=== PATIENT | female | born 1960 | race Caucasian/White ===

== ENCOUNTER 2020-01-05 15:45 | Emergency (ER) | payer OTHER ==
[2020-01-05] MEDS ORDERED: LORAZEPAM 1 MG TABLET ONE (17:05)
[2020-01-05 17:14] LABS: Absolute Lymphocytes (CBC) 3.5 K/uL (0.7-4.9); Basophils % 0.8 % (0-1.3); Hematocrit 40.5 % (36.0-45.0); Lymphocytes % 36.2 % (15.3-44.8); MPV 8.1 fL (7.6-11.3); Protime INR 1.08; RBC Red Blood Cell Count 4.51 M/uL (3.86-4.86)
[2020-01-05 17:30] LABS: ALT/SGPT 34 U/L (12-78); AST/SGOT 24 U/L (15-37); Albumin 4.2 g/dL (3.4-5.0); Alkaline Phosphatase 94 U/L (45-117); BUN Blood Urea Nitrogen 15 mg/dL (7-18); Bicarbonate 25 mmol/L (21-32); Bilirubin Direct < 0.1 mg/dL (0-0.2); Bilirubin Total 0.3 mg/dL (0.2-1.0); Glucose Level 96 mg/dL (74-106); Magnesium 2.1 mg/dL (1.8-2.4); NT PRO-BNP 31 pg/mL (<125); Potassium 3.3 mmol/L (3.5-5.1); Protein, Total 7.8 g/dL (6.4-8.2); Sodium Level 140 mmol/L (136-145); Troponin (Emerg Dept Use Only) < 0.02 ng/mL (0.0-0.045)
--- NOTE | 2020-01-05 17:53 | RAD REPORT ---
EXAM DESCRIPTION: RAD - Chest Single View - 01/05/2020 5:19 pm CLINICAL HISTORY: CHEST PAIN COMPARISON: None TECHNIQUE: AP portable chest image was obtained 01/05/2020 5:19 pm . FINDINGS: Lungs are clear. Heart and vasculature are normal. No measurable pleural effusion and no p neumothorax. No acute bony abnormality seen. No acute aortic findings suspected. IMPRESSION: No acute cardiopulmonary process.
--- NOTE | 2020-01-05 18:26 | ER ---
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 Heavy, intermittent, ca1 radiating to the L arm. Reports lightheadedness and SOB with chest pain. States, "I also have anxiety". Denies injury. Denies cough. Denies HX of heart conditions. Coronavirus screen: Client denies travel out of the [place] in the last 14 days. shortness of breath, Client presents with at least one sign or symptom that may indicate coronavirus-19. Standard/surgical mask placed on the client. Provider contacted for isolation considerations. The client reports previous COVID testing was negative. Date of collection: November 2019. Ebola Screen: Patient negative for fever greater than or equal to 101.5 degrees Fahrenheit, and additional compatible Ebola Virus Disease symptoms Patient denies exposure to infectious person. Patient denies travel to an Ebola-affected area in the 21 days before illness onset. No symptoms or risks identified at this time. Initial Sepsis Screen: Does the patient meet any 2 criteria? No. Patient's initial sepsis screen is negative. Does the patient have a suspected source of infection? No. Patient's initial sepsis screen is negative. Risk Assessment: Do you want to hurt yourself or someone else? Patient reports no desire to harm self or others. Onset of symptoms was January 05, 2020. 15:52 Method Of Arrival: Ambulatory ca1 15:52 Acuity: ADOLFO 3 ca1 16:01 Acuity: ADOLFO 2 ll2 Historical: - Allergies: 15:56 PENICILLINS; ca1 15:56 Pyridium; ca1 - Home Meds: 15:56 Paxil 40 mg Oral tab 1 tab once daily [Active]; Paxil 10 mg Oral tab 1 tab once daily ca1 [Active]; - PMHx: 15:56 Depression; ca1 - PSHx: 15:56 Hysterectomy; Cholecystectomy; ca1 - Immunization history:: Adult Immunizations up to date, Flu vaccine is up to date. - Social history:: Smoking status: Patient denies any tobacco usage or history of. Screenin:06 Abuse screen: Denies threats or abuse. Nutritional screening: No deficits noted. ll2 Tuberculosis screening: No symptoms or risk factors identified. Fall Risk None identified. Assessment: 16:05 General: Appears in no apparent distress. Behavior is calm, cooperative, appropriate ll2 for age. Pain: Complains of pain in mid-sternal area Pain does not radiate. Pain currently is 6 out of 10 on a pain scale. Quality of pain is described as dull, pressure, Pain began 30 min ago. Neuro: Level of Consciousness is awake, alert, obeys commands, Oriented to person, place, time, situation. Cardiovascular: Capillary refill < 3 seconds Patient's skin is warm and dry. Respiratory: Airway is patent Respiratory effort is even, unlabored, Respiratory pattern is regular, symmetrical. Derm: Skin is intact, is healthy with good turgor, Skin is dry, Skin is pink, warm \\T\\ dry. Skin temperature is warm. Musculoskeletal: Circulation, motion, and sensation intact. Range of motion: intact in all extremities. 18:53 Reassessment: Pt reports unable to swallow pills, ERD notified, VO to change order to jl7 25 mEq Potassium Effervescent PO. Vital Signs: 15:52 BP 136 / 83; Pulse 87; Resp 16 S; Temp 97.2(TE); Pulse Ox 100% on R/A; Weight 79.83 kg ca1 (R); Height 5 ft. 5 in. (165.10 cm) (R); Pain 6/10; 16:05 BP 140 / 92; Pulse 87; Resp 16; Pulse Ox 100% on R/A; ll2 17:04 BP 115 / 77; Pulse 80; Resp 14; Pulse Ox 100% ; ll2 15:52 Body Mass Index 29.29 (79.83 kg, 165.10 cm) ca1 ED Course: 15:48 Patient arrived in ED. as 15:55 Triage completed. ca1 15:56 Arm band placed on right wrist. ca1 16:01 Maritza Johnston, BARBARA is Primary Nurse. ll2 16:12 EKG done, by ED staff, reviewed by Amrik Kramer MD. mh5 16:13 Patient has correct armband on for positive identification. Placed in gown. Bed in low mh5 position. Call light in reach. Side rails up X 1. Warm blanket given. quality assurance monitor final on. Pulse ox on. NIBP on. 16:16 Amrik Kramer MD is Attending Physician. kdr 17:06 Initial lab(s) drawn, by me, sent to lab. Inserted saline lock: 20 gauge in left ll2 antecubital area, using aseptic technique. Blood collected. Patient maintains SpO2 saturation greater than 95% on room air. 17:19 XRAY Chest (1 view) In Process Unspecified. EDMS 18:58 No provider procedures requiring assistance completed. IV discontinued, intact, jl7 bleeding controlled, No redness/swelling at site. Pressure dressing applied. Administered Medications: 17:07 Drug: Ativan 1 mg Route: PO; ll2 18:54 Not Given (Other Intervention Used): Potassium Chloride 20 mEq PO once jl7 18:54 Drug: Potassium Effervescent Tablet 25 mEq Route: PO; jl7 18:54 Follow up: Response: Medication administered at discharge. jl7 Outcome: 18:26 Discharge ordered by . kdr 18:58 Discharged to home ambulatory. jl7 18:58 Condition: stable 18:58 Discharge instructions given to patient, Instructed on discharge instructions, follow up and referral plans. medication usage, Demonstrated understanding of instructions, follow-up care, medications, Prescriptions given X 1. 18:59 Patient left the ED. jl7 Signatures: Dispatcher [employer] EDDC Amrik Kramer MD MD kdr Martinez, Amelia as Martinez, Maria [facility] Toni Traylor RN RN jl7 Teri Ferrera RN RN [facility] Maritza Johnston RN RN 2
--- NOTE | 2020-01-05 18:27 | EDPHYS ---
Physician Documentation [facility] Name: Monalisa Moore Age: 59 yrs Sex: Female : 1960 Arrival Date: 01/05/2020 Time: 15:48 Bed 17 Private MD: ED Physician Amrik Kramer HPI: 01/04 17:05 This 59 yrs old Female presents to ER via Ambulatory with complaints of kdr Anxiety, Chest Pressure, Shortness Of Breath. 17:05 The patient or guardian reports chest pain that is located primarily in the substernal kdr area. Onset: acutely, just prior to arrival. The pain does not radiate. Associated signs and symptoms: Pertinent positives: shortness of breath, Pertinent negatives: abdominal pain, cough, diaphoresis, dizziness, headache, lower extremity pain, lower extremity swelling, lightheadedness, nausea. The chest pain is described as dull, a pressure, Feels like she is vibrating inside her chest. Duration: The patient or guardian reports a single episode, that is still ongoing, but improving. Modifying factors: The symptoms are alleviated by nothing. the symptoms are aggravated by nothing. Severity of pain: At its worst the pain was mild in the emergency department the pain is unchanged. The patient has not experienced similar symptoms in the past. The patient has not recently seen a physician. The patient states that she has been under a lot of stress since becoming unemployeed. Historical: - Allergies: 15:56 PENICILLINS; ca1 15:56 Pyridium; ca1 - Home Meds: 15:56 Paxil 40 mg Oral tab 1 tab once daily [Active]; Paxil 10 mg Oral tab 1 tab once daily ca1 [Active]; - PMHx: 15:56 Depression; ca1 - PSHx: 15:56 Hysterectomy; Cholecystectomy; ca1 - Immunization history:: Adult Immunizations up to date, Flu vaccine is up to date. - Social history:: Smoking status: Patient denies any tobacco usage or history of. ROS: 17:05 Constitutional: Negative for fever, chills, and weight loss, Eyes: Negative for injury, kdr pain, redness, and discharge, ENT: Negative for injury, pain, and discharge, Neck: Negative for injury, pain, and swelling, Respiratory: Negative for shortness of breath, cough, wheezing, and pleuritic chest pain, Abdomen/GI: Negative for abdominal pain, nausea, vomiting, diarrhea, and constipation, Back: Negative for injury and pain, : Negative for injury, bleeding, discharge, and swelling, MS/Extremity: Negative for injury and deformity, Skin: Negative for injury, rash, and discoloration, Neuro: Negative for headache, weakness, numbness, tingling, and seizure activity. Psych: Negative for depression, anxiety, suicide ideation, homicidal ideation, and hallucinations, Allergy/Immunology: Negative for hives, rash, and allergies, Endocrine: Negative for neck swelling, polydipsia, polyuria, polyphagia, and marked weight changes, Hematologic/Lymphatic: Negative for swollen nodes, abnormal bleeding, and unusual bruising. 17:05 Cardiovascular: Positive for chest pain, of the mid-sternal area. 17:05 Respiratory: Positive for shortness of breath, at rest. initially at onset. Exam: 17:05 Constitutional: This is a well developed, well nourished patient who is awake, alert, kdr and in no acute distress. Head/Face: Normocephalic, atraumatic. Eyes: Pupils equal round and reactive to light, extra-ocular motions intact. Lids and lashes normal. Conjunctiva and sclera are non-icteric and not injected. Cornea within normal limits. Periorbital areas with no swelling, redness, or edema. Neck: Trachea midline, no thyromegaly or masses palpated, and no cervical lymphadenopathy. Supple, full range of motion without nuchal rigidity, or vertebral point tenderness. No Meningismus. Chest/axilla: Normal chest wall appearance and motion. Nontender with no deformity. No lesions are appreciated. Cardiovascular: Regular rate and rhythm with a normal S1 and S2. No gallops, murmurs, or rubs. Normal PMI, no JVD. No pulse deficits. Respiratory: Lungs have equal breath sounds bilaterally, clear to auscultation and percussion. No rales, rhonchi or wheezes noted. No increased work of breathing, no retractions or nasal flaring. Abdomen/GI: Soft, non-tender, with normal bowel sounds. No distension or tympany. No guarding or rebound. No evidence of tenderness throughout. Back: No spinal tenderness. No costovertebral tenderness. Full range of motion. Skin: Warm, dry with normal turgor. Normal color with no rashes, no lesions, and no evidence of cellulitis. MS/ Extremity: Pulses equal, no cyanosis. Neurovascular intact. Full, normal range of motion. Neuro: Awake and alert, GCS 15, oriented to person, place, time, and situation. Cranial nerves II-XII grossly intact. Motor strength 5/5 in all extremities. Sensory grossly intact. Cerebellar exam normal. Normal gait. Psych: Awake, alert, with orientation to person, place and time. Behavior, mood, and affect are within normal limits. 19:12 ECG was reviewed by the Attending Physician. kdr Vital Signs: 15:52 BP 136 / 83; Pulse 87; Resp 16 S; Temp 97.2(TE); Pulse Ox 100% on R/A; Weight 79.83 kg ca1 (R); Height 5 ft. 5 in. (165.10 cm) (R); Pain 6/10; 16:05 BP 140 / 92; Pulse 87; Resp 16; Pulse Ox 100% on R/A; ll2 17:04 BP 115 / 77; Pulse 80; Resp 14; Pulse Ox 100% ; ll2 15:52 Body Mass Index 29.29 (79.83 kg, 165.10 cm) ca1 MDM: 17:05 Data reviewed: vital signs, nurses notes, lab test result(s), EKG, radiologic studies. kdr Counseling: I had a detailed discussion with the patient and/or guardian regarding: the historical points, exam findings, and any diagnostic results supporting the discharge/admit diagnosis, lab results, radiology results, the need for outpatient follow up. 18:26 Patient medically screened. [facility] 01/04 16:51 Order name: Basic Metabolic Panel; Complete Time: 18:16 [facility] 01/04 16:51 Order name: CBC with Diff; Complete Time: 18:16 [facility] 01/04 16:51 Order name: LFT's; Complete Time: 18:16 [facility] 01/04 16:51 Order name: Magnesium; Complete Time: 18:16 [facility] 01/04 16:51 Order name: NT PRO-BNP; Complete Time: 18:16 [facility] 01/04 16:51 Order name: PT-INR; Complete Time: 18:16 [facility] 01/04 16:51 Order name: Troponin (emerg Dept Use Only); Complete Time: 18:16 [facility] 01/04 16:40 Order name: Cardiac monitoring; Complete Time: 16:40 2 01/04 16:40 Order name: EKG - Nurse/Tech; Complete Time: 16:40 2 01/04 16:40 Order name: IV Saline Lock; Complete Time: 17:01 2 01/04 16:40 Order name: Labs collected and sent; Complete Time: 17:01 2 01/04 16:40 Order name: O2 Per Protocol; Complete Time: 16:40 2 01/04 16:40 Order name: O2 Sat Monitoring; Complete Time: 16:40 2 01/04 16:51 Order name: XRAY Chest (1 view); Complete Time: 18:16 7 01/04 16:51 Order name: EKG; Complete Time: 16:51 [facility] EC:12 Rate is 83 beats/min. Rhythm is regular, Normal Sinus Rhythm with No ectopy. QRS [place] kdr is Normal. [place] interval is normal. QRS interval is normal. Clinical impression: Normal ECG. Administered Medications: 17:07 Drug: Ativan 1 mg Route: PO; 2 18:54 Not Given (Other Intervention Used): Potassium Chloride 20 mEq PO once [facility] 18:54 Drug: Potassium Effervescent Tablet 25 mEq Route: PO; 7 18:54 Follow up: Response: Medication administered at discharge. [facility] Disposition: 01/05/20 18:26 Discharged to Home. Impression: Anxiety disorder, unspecified, Chest pain, unspecified. - Condition is Stable. - Discharge Instructions: Nonspecific Chest Pain, [id number], Panic Attacks, [id number], Generalized Anxiety Disorder. - Prescriptions for Ativan 1 mg Oral Tablet - take 1 tablet by ORAL route every 8 hours As needed; 10 tablet. - Medication Reconciliation Form, Thank You Letter form. - Follow up: Private Physician; When: 2 - 3 days; Reason: If symptoms return, Further diagnostic work-up, Recheck today's complaints, Continuance of care, Re-evaluation by your physician. - Problem is new. - Symptoms are resolved. Signatures: Dispatcher [employer] EDNV Amrik Kramer MD MD kdr Leal, Jahala, RN RN jl7 Teri Ferrera RN RN [facility] Maritza Johnston RN RN ll2 Corrections: (The following items were deleted from the chart) 18:59 18:26 01/05/2020 18:26 Discharged to Home. Impression: Anxiety disorder, unspecified; jl7 Chest pain, unspecified. Condition is Stable. Forms are Medication Reconciliation Form, Thank You Letter, Antibiotic Education, Prescription Opioid Use. Follow up: Private Physician; When: 2 - 3 days; Reason: If symptoms return, Further diagnostic work-up, Recheck today's complaints, Continuance of care, Re-evaluation by your physician. Problem is new. Symptoms are resolved. kdr
[2020-01-05] MEDS ORDERED: POTASSIUM CL SA 10 MEQ TAB PO ONE (18:58)
[2020-01-05] MEDS ORDERED: POTASSIUM 25 MEQ EFFERV TAB ONE (19:04)
[2020-01-06 01:31] VITALS: TEMP 97.2; O2SAT 100
[2020-01-06 01:34] VITALS: BP 115/77
--- NOTE | 2020-01-06 12:06 | EKG ---
Test Date: 2020-01-05 Test Time: 16:06:21 Food Service Tray Attendant: MARIJA MEASUREMENT RESULTS: Intervals: Rate: 83 OR: 140 QRSD: 82 QT: 386 QTc: 453 [place]: P: 35 OR: 140 QRS: -29 T: -8 INTERPRETIVE STATEMENTS: Normal sinus rhythm Normal ECG No previous ECG available for comparison Electronically Signed On 01-06-20 12:03:21 WIRE SPOOLER by Wilbert Pisano
== END 2020-01-05 18:59 | disposition home or self-care (01) ==
LOC: ER 15:45
DX: F41.9 Anxiety disorder, unspecified (principal); F32.9 Major depressive disorder, single episode, unspecified; Z88.0 Allergy status to penicillin; Z88.8 Allergy status to other drugs, medicaments and biological substances
CPT/HCPCS: 36415; 71045; 80048; 80076; 83735; 83880; 84484; 85025; 85610; 93005; 99285

== ENCOUNTER 2020-05-12 16:27 | Emergency (ER) | payer OTHER ==
--- OUTSIDE RECORDS SUMMARY | 2020-05-12 16:29 | XMS REPORT | Continuity of Care Document ---
:1960 Author Organization [facility] t Address [address] [place] [address] Care Team Providers Name Role Phone Singer TRAN Attending Clinician Problems This patient has no known problems. Allergies, Adverse Reactions, Alerts This patient has no known allergies or adverse reactions. Medications This patient has no known medications. Procedures This patient has no known procedures. Encounters Start End Encounter Admission Attending Care Care Encounter Source Date/Time Date/Time Type Type Clinicians Facility Department ID 2020-05-03 2020-05-03 Emergency SHERYL Valderrama [id number] 09:19:00 10:00:00 Vel Hutchins [id number] [place] [id number] [place] [id number] Results This patient has no known results.
[2020-05-12 18:34] LABS: Urine Bacteria 20-50 /HPF (<20); Urine RBC <5 /HPF (NONE SEEN)
--- NOTE | 2020-05-12 18:34 | ER ---
Nurse's Notes [facility] Name: Monalisa Moore Age: 59 yrs Sex: Female : 1960 Arrival Date: 05/12/2020 Time: 16:32 Bed 4 Private MD: Diagnosis: Urinary tract infection, site not specified Presentation: 05/12 16:42 Chief complaint: Patient states: Pelvic pain for 3 days. Dysuria for 3 days. No fever. ll1 No N/V/D. Azo didn't help. Coronavirus screen: Client denies travel out of the [place] in the last 14 days. At this time, the client does not indicate any symptoms associated with coronavirus-19. Ebola Screen: Patient denies travel to an Ebola-affected area in the 21 days before illness onset. Initial Sepsis Screen: Does the patient meet any 2 criteria? HR > 90 bpm. No. Patient's initial sepsis screen is negative. Does the patient have a suspected source of infection? Yes: Dysuria/Frequency/Urgency/UTI. Risk Assessment: Do you want to hurt yourself or someone else? Patient reports no desire to harm self or others. Onset of symptoms was May 10, 2020. 16:42 Method Of Arrival: Ambulatory ll1 16:42 Acuity: ADOLFO 3 ll1 Historical: - Allergies: 16:45 Pyridium; ll1 16:45 PENICILLINS; ll1 - PMHx: 16:45 Depression; ll1 - PSHx: 16:45 Hysterectomy; Cholecystectomy; ll1 - Immunization history:: Flu vaccine is up to date. - Social history:: Smoking status: Patient denies any tobacco usage or history of. Screenin:17 Abuse screen: Denies threats or abuse. Denies injuries from another. Nutritional hb screening: No deficits noted. Tuberculosis screening: No symptoms or risk factors identified. Fall Risk None identified. Assessment: 18:15 : Reports burning with urination, began today pain in suprapubic area x "a few days". ss 18:20 General: Appears in no apparent distress. Behavior is calm, cooperative. Pain: Pain hb currently is 9 out of 10 on a pain scale. Neuro: Level of Consciousness is awake, alert, obeys commands, Oriented to person, place, time, situation. Cardiovascular: Capillary refill < 3 seconds Patient's skin is warm and dry. Respiratory: Respiratory effort is even, unlabored, Respiratory pattern is regular, symmetrical. GI: Reports lower abdominal pain. : No signs and/or symptoms were reported regarding the genitourinary system. EENT: No signs and/or symptoms were reported regarding the EENT system. Derm: Skin is pink, warm \\T\\ dry. Musculoskeletal: No signs and/or symptoms reported regarding the musculoskeletal system. Vital Signs: 16:42 BP 128 / 97; Pulse 107; Resp 17; Temp 98.4; Pulse Ox 97% ; Weight 75.75 kg; Height 5 ll1 ft. 5 in. (165.10 cm); Pain 9/10; 16:42 Body Mass Index 27.79 (75.75 kg, 165.10 cm) ll1 ED Course: 16:32 Patient arrived in ED. mr 16:44 Triage completed. ll1 16:45 Arm band placed on. ll1 17:26 Mark Iraheta PA is PHCP. [facility] 17:26 Vel Valderrama MD is Attending Physician. [facility] 17:29 Urine Microscopic Only Sent. 18:17 Shelia Jones, BARBARA is Primary Nurse. hb 18:17 Patient has correct armband on for positive identification. Bed in low position. Call hb light in reach. 18:19 Attending Physician role handed off by Vel Valderrama MD cha 18:19 Favian Coppola MD is Attending Physician. [facility] 18:40 No provider procedures requiring assistance completed. Patient did not have IV access ss during this emergency room visit. Administered Medications: 18:39 Drug: Macrobid 100 mg Route: PO; 18:39 Follow up: Response: No adverse reaction; Medication administered at discharge. Outcome: 18:34 Discharge ordered by . [facility] 18:40 Discharged to home ambulatory. 18:40 Condition: good 18:40 Discharge instructions given to patient, Instructed on discharge instructions, follow up and referral plans. medication usage, Demonstrated understanding of instructions, follow-up care, medications. 18:41 Patient left the ED. ss Addendum: 05/15/2020 07:24 Addendum: Culture Results: Positive urine culture. No further action required. Bacteria e b sensitive to prescribed antibiotic. Signatures: Piper Allen RN RN sv Anderson, Corey, MD MD cha Mickail, Joel, PA PA jmm Carrillo, Jaleesa mr LuanneAlicia, RN RN ss Shelia Jones RN RN hb Botello, Elizabeth eb Lewis, Lynsay, RN RN ll1 Corrections: (The following items were deleted from the chart) 05/12 16:45 16:42 Acuity: ADOLFO 2 ll1 ll1
--- NOTE | 2020-05-12 18:34 | EDPHYS ---
Physician Documentation [facility] Name: Monalisa Moore Age: 59 yrs Sex: Female : 1960 Arrival Date: 05/12/2020 Time: 16:32 Bed 4 Private MD: JOELLE Physician Favian Coppola HPI: 05/12 18:31 This 59 yrs old Female presents to ER via Ambulatory with complaints of jmm Pelvic Pain. 18:31 The patient presents with urinary symptoms, dysuria, frequency. Onset: The jmm symptoms/episode began/occurred gradually, 3 day(s) ago. Modifying factors: The symptoms are alleviated by nothing, the symptoms are aggravated by nothing. Associated signs and symptoms: Pertinent negatives: fever, vomiting. Denies abdominal pain, vomiting, back pain, or fever. Historical: - Allergies: 16:45 Pyridium; ll1 16:45 PENICILLINS; ll1 - PMHx: 16:45 Depression; ll1 - PSHx: 16:45 Hysterectomy; Cholecystectomy; ll1 - Immunization history:: Flu vaccine is up to date. - Social history:: Smoking status: Patient denies any tobacco usage or history of. ROS: 18:31 Constitutional: Negative for fever, chills, and weight loss, Cardiovascular: Negative jmm for chest pain, palpitations, and edema, Respiratory: Negative for shortness of breath, cough, wheezing, and pleuritic chest pain. 18:31 : Positive for urinary symptoms. 18:31 All other systems are negative. Exam: 18:31 Constitutional: This is a well developed, well nourished patient who is awake, alert, jmm and in no acute distress. Head/Face: atraumatic. Eyes: EOMI, no conjunctival erythema appreciated ENT: Moist Mucus Membranes Neck: Trachea midline, Supple Chest/axilla: Normal chest wall appearance and motion. Cardiovascular: Regular rate and rhythm. No edema appreciated Respiratory: Normal respirations, no respiratory distress appreciated Abdomen/GI: Non distended, soft Back: Normal ROM Skin: General appearance color normal MS/ Extremity: Moves all extremities, no obvious deformities appreciated, no edema noted to the lower extremities Neuro: Awake and alert, normal gait Psych: Behavior is normal, Mood is normal, Patient is cooperative and pleasant Vital Signs: 16:42 BP 128 / 97; Pulse 107; Resp 17; Temp 98.4; Pulse Ox 97% ; Weight 75.75 kg; Height 5 ll1 ft. 5 in. (165.10 cm); Pain 9/10; 16:42 Body Mass Index 27.79 (75.75 kg, 165.10 cm) ll1 MDM: 18:28 Patient medically screened. [facility] 18:32 Data reviewed: vital signs, nurses notes. Counseling: I had a detailed discussion with farhad the patient and/or guardian regarding: the historical points, exam findings, and any diagnostic results supporting the discharge/admit diagnosis, lab results, the need for outpatient follow up, to return to the emergency department if symptoms worsen or persist or if there are any questions or concerns that arise at home. ED course: Patient is alert and non toxic in appearance in the ED. No signs of sepsis. I do not suspect an acute intrabdominal process. Patient is advised to follow up with pcp and otherwise given strict return precautions. Patient understood and agrees with the plan of care. . 05/12 17:28 Order name: Urine Microscopic Only [facility] 05/12 17:28 Order name: Urine Microscopic Only [facility] 05/12 17:28 Order name: Urine Dipstick-Ancillary (obtain specimen); Complete Time: 17:29 [facility] 05/12 17:30 Order name: Urine Dipstick--Ancillary (enter results) in 05/12 18:36 Order name: Urine Culture [facility] Administered Medications: 18:39 Drug: Macrobid 100 mg Route: PO; ss 18:39 Follow up: Response: No adverse reaction; Medication administered at discharge. Disposition: 05/13 06:48 Co-signature as Attending Physician, Favian Coppola MD I agree with the assessment and kathie plan of care. Disposition: 05/12/20 18:34 Discharged to Home. Impression: Urinary tract infection, site not specified. - Condition is Stable. - Discharge Instructions: Urinary Tract Infection, Adult. - Prescriptions for Macrobid 100 mg Oral Capsule - take 1 capsule by ORAL route every 12 hours for 7 days; 14 capsule. - Medication Reconciliation Form, Thank You Letter, Antibiotic Education, Prescription Opioid Use form. - Follow up: Private Physician; When: 2 - 3 days; Reason: Recheck today's complaints, Continuance of care, Re-evaluation by your physician. Signatures: Dispatcher [employer] Favian Velez MD MD kathie Mickail, Mark, PA PA jmm Smirch, Alicia, RN RN ss Marily Long RN RN ll1 Corrections: (The following items were deleted from the chart) 05/12 18:41 18:34 05/12/2020 18:34 Discharged to Home. Impression: Urinary tract infection, site ss not specified. Condition is Stable. Forms are Medication Reconciliation Form, Thank You Letter, Antibiotic Education, Prescription Opioid Use. Follow up: Private Physician; When: 2 - 3 days; Reason: Recheck today's complaints, Continuance of care, Re-evaluation by your physician. farhad
[2020-05-12 18:49] VITALS: BP 128/97; TEMP 98.4; O2SAT 97
[2020-05-12] MEDS ORDERED: NITROFURAN MACRO 100 MG CAP PO ONE (18:51)
[2020-05-12 20:14] LABS: Urine Blood 2+ (NEG); Urine Glucose NEGATIVE (NEG); Urine Protein 2+ (NEG); Urine Specific Gravity >1.030 (1.005-1.030)
== END 2020-05-12 18:41 | disposition home or self-care (01) ==
LOC: ER 16:27
DX: N39.0 Urinary tract infection, site not specified (principal); F32.9 Major depressive disorder, single episode, unspecified
CPT/HCPCS: 81003; 81015; 87077; 87086; 87088; 87186; 99283

== ENCOUNTER 2020-06-13 09:12 | Emergency (ER) | payer OTHER ==
--- OUTSIDE RECORDS SUMMARY | 2020-06-13 09:14 | XMS REPORT | Continuity of Care Document ---
:1960 Author Organization [facility] t Address [address] [place] [address] Care Team Providers Name Role Phone Singer [...] Clinicians Facility Department ID 2020-05-03 2020-05-03 Emergency Singer [facility] [id number] 09:19:00 10:00:00 Vel Hutchins [id number] [place] [id number] [place] [id number] Results This patient has no known results.
[2020-06-13 09:45] LABS: Absolute Lymphocytes (CBC) 0.3 K/uL (0.7-4.9); Basophils % 0.3 % (0-1.3); Hematocrit 44.3 % (36.0-45.0); Lymphocytes % 2.5 % (15.3-44.8); MPV 7.9 fL (7.6-11.3); RBC Red Blood Cell Count 4.92 M/uL (3.86-4.86)
[2020-06-13] MEDS ORDERED: NA CHLORIDE 0.9% 1,000 ML ONE (09:57)
[2020-06-13] MEDS ORDERED: ONDANSETRON 4 MG/2 ML VIAL ONE (09:57)
[2020-06-13] MEDS ORDERED: KETOROLAC 30 MG/ML INJ ONE (09:57)
[2020-06-13 10:05] LABS: Albumin 4.2 g/dL (3.4-5.0); Bilirubin Direct 0.1 mg/dL (0-0.2); Bilirubin Total 0.6 mg/dL (0.2-1.0); Potassium 3.9 mmol/L (3.5-5.1)
[2020-06-13 10:16] LABS: Blood Morphology Comment NOT SEEN (NOT SEEN); Platelet Estimate ADEQ; White Blood Cell Scan OK (OK)
--- NOTE | 2020-06-13 11:29 | RAD REPORT ---
EXAM DESCRIPTION: CT - Abdomen Pelvis W Contrast - 06/13/2020 11:08 am CLINICAL HISTORY: Abdominal pain COMPARISON: none. TECHNIQUE: Computed axial tomography of the abdomen pelvis was obtained. 100 cc Isovue-300 was admin istered intravenously. Oral contrast was not requested which limits evaluation of bowel. All CT scans are performed using dose optimization technique as appropriate and may include automated exposure control or mA/KV adjustment according to patient size. FINDINGS: The liver, spleen, pancreas, adrenal and kidneys appear unremarkable. There is no evidence of diverticulitis. Cholecystectomy and hysterectomy. Small hiatal hernia. Fluid within nondilated small bowel. Small umbilical hernia IMPRESSION: Fluid within nondilated small bowel may indicate an enteritis
--- NOTE | 2020-06-13 11:35 | EDPHYS ---
Physician Documentation [facility] Name: Monalisa Moore Age: 60 yrs Sex: Female : 1960 Arrival Date: 06/13/2020 Time: 09:13 Bed 8 Private MD: ED Physician Favian Coppola HPI: 06/13 09:26 This 60 yrs old Female presents to ER via Ambulatory with complaints of kb Vomiting. 09:26 The patient presents to the emergency department with nausea, vomiting, diarrhea, kb abdominal pain. Onset: The symptoms/episode began/occurred last night. Possible causes: sick contacts. The symptoms are aggravated by nothing. The symptoms are alleviated by nothing. Associated signs and symptoms: Pertinent positives: abdominal pain, diarrhea, nausea, vomiting. Severity of symptoms: At their worst the symptoms were moderate in the emergency department the symptoms are unchanged. The patient has not experienced similar symptoms in the past. The patient has not recently seen a physician. Pt reports she started having diarrhea and vomiting around 2300 last night. Has had symptoms all night. Now complaining of diffuse abd pain. 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 Historical: - Allergies: 09:23 PENICILLINS; aa5 09:23 Pyridium; aa5 - Home Meds: 09:23 Paxil 40 mg Oral tab 1 tab once daily [Active]; Paxil 10 mg Oral tab 1 tab once daily aa5 [Active]; - PMHx: 09:23 Depression; aa5 - PSHx: 09:23 Hysterectomy; Cholecystectomy; Appendectomy; L ankle; aa5 - Immunization history:: Adult Immunizations unknown. - Social history:: Smoking status: Patient denies any tobacco usage or history of. ROS: 09:25 Cardiovascular: Negative for chest pain, palpitations, and edema, Respiratory: Negative kb for shortness of breath, cough, wheezing, and pleuritic chest pain, MS/Extremity: Negative for injury and deformity, Skin: Negative for injury, rash, and discoloration, Neuro: Negative for headache, weakness, numbness, tingling, and seizure. 09:25 Constitutional: Positive for chills, malaise. 09:25 Abdomen/GI: Positive for abdominal pain, nausea, vomiting, and diarrhea, Negative for constipation. Exam: 09:25 Constitutional: This is a well developed, well nourished patient who is awake, alert, kb and in no acute distress. Head/Face: Normocephalic, atraumatic. Respiratory: Respirations even and unlabored. No increased work of breathing, no retractions or nasal flaring. Skin: Warm, dry with normal turgor. Normal color. MS/ Extremity: Pulses equal, no cyanosis. Neurovascular intact. Full, normal range of motion. Neuro: Awake and alert, GCS 15, oriented to person, place, time, and situation. Moves all extremities. Normal gait. 09:25 Abdomen/GI: Inspection: abdomen appears normal, Bowel sounds: normal, Palpation: soft, in all quadrants, mild abdominal tenderness, in all quadrants. Vital Signs: 09:13 BP 131 / 84; Pulse 112; Resp 20 S; Temp 98.5(O); Pulse Ox 100% on R/A; Weight 74.84 kg aa5 (R); Height 5 ft. 5 in. (165.10 cm) (R); Pain 3/10; 10:43 BP 102 / 58; Pulse 99; Resp 19; Pulse Ox 96% ; jl7 11:30 BP 105 / 60; Pulse 95; Resp 15; Pulse Ox 98% ; jl7 09:13 Body Mass Index 27.46 (74.84 kg, 165.10 cm) aa5 MDM: 09:14 Patient medically screened. kb 09:25 Data reviewed: vital signs, nurses notes. Data interpreted: Pulse oximetry: on room air kb is 100 %. Interpretation: normal. 11:34 Counseling: I had a detailed discussion with the patient and/or guardian regarding: the kb historical points, exam findings, and any diagnostic results supporting the discharge/admit diagnosis, lab results, radiology results, the need for outpatient follow up, a family practitioner, to return to the emergency department if symptoms worsen or persist or if there are any questions or concerns that arise at home. 06/13 09:24 Order name: Basic Metabolic Panel; Complete Time: 10:17 kb 06/13 09:24 Order name: CBC with Diff; Complete Time: 10:17 kb 06/13 09:24 Order name: Hepatic Function; Complete Time: 10:17 kb 06/13 09:24 Order name: Lipase; Complete Time: 10:17 kb 06/13 09:48 Order name: CBC Smear Scan; Complete Time: 10:17 EDMS 06/13 10:18 Order name: CT Abd/Pelvis - IV Contrast Only; Complete Time: 11:32 kb 06/13 09:24 Order name: IV Saline Lock; Complete Time: 09:36 kb 06/13 09:24 Order name: Labs collected and sent; Complete Time: 09:36 kb Administered Medications: 09:45 Drug: NS 0.9% 1000 ml Route: IV; Rate: 1000 ml; Site: left antecubital; jd3 11:00 Follow up: Response: No adverse reaction; IV Status: Completed infusion; IV Intake: jl7 1000ml 09:45 Drug: Zofran (Ondansetron) 4 mg Route: IVP; Site: left antecubital; jd3 10:30 Follow up: Response: No adverse reaction; Nausea is decreased jl7 09:45 Drug: TORadol (ketorolac) 30 mg Route: IVP; Site: left antecubital; jd3 10:30 Follow up: Response: No adverse reaction; Pain is decreased jl7 Disposition: 06/14 08:59 Co-signature as Attending Physician, Favian Coppola MD I agree with the assessment and kathie plan of care. Disposition: 06/13/20 11:35 Discharged to Home. Impression: Nausea and vomiting - enteritis, Diarrhea, unspecified. - Condition is Stable. - Discharge Instructions: Food Choices to Help Relieve Diarrhea, Adult, Viral Gastroenteritis, Adult, [id number]. - Prescriptions for Bentyl 20 mg Oral Tablet - take 1 tablet by ORAL route every 6 hours As needed; 20 tablet. Zofran 4 mg Oral Tablet - take 1 tablet by ORAL route every 6 hours As needed; 20 tablet. - Work release form, Medication Reconciliation Form, Thank You Letter, Antibiotic Education, Prescription Opioid Use form. - Follow up: Emergency Department; When: As needed; Reason: Worsening of condition. Follow up: Private Physician; When: 2 - 3 days; Reason: Recheck today's complaints, Continuance of care, Re-evaluation by your physician. Signatures: Dispatcher [employer] [facility] Karla Avilez, OUT OF TOWN COLLECTION CLERK-C MEREDITH-Favian Coker MD MD cha Calderon, Audri, RN RN aa5 Toni Traylor RN RN jl7 Jake Miller RN RN jd3 Corrections: (The following items were deleted from the chart) 06/13 12:12 11:35 06/13/2020 11:35 Discharged to Home. Impression: Nausea and vomiting - enteritis; jl7 Diarrhea, unspecified. Condition is Stable. Forms are Medication Reconciliation Form, Thank You Letter, Antibiotic Education, Prescription Opioid Use. Follow up: Emergency Department; When: As needed; Reason: Worsening of condition. Follow up: Private Physician; When: 2 - 3 days; Reason: Recheck today's complaints, Continuance of care, Re-evaluation by your physician. kb
--- NOTE | 2020-06-13 11:35 | ER ---
Nurse's Notes [facility] Name: Monalisa Moore Age: 60 yrs Sex: Female : 1960 Arrival Date: 06/13/2020 Time: 09:13 Bed 8 Private MD: Diagnosis: Nausea and vomiting-enteritis;Diarrhea, unspecified Presentation: 06/13 09:13 Chief complaint: Patient states: vomiting and diarrhea since last night. Pt also aa5 reports chills, body aches, and sore throat. Denies cough. 09:13 Coronavirus screen: diarrhea, nausea, vomiting. Ebola Screen: Patient negative for aa5 fever greater than or equal to 101.5 degrees Fahrenheit, and additional compatible Ebola Virus Disease symptoms. Initial Sepsis Screen: Does the patient meet any 2 criteria? HR > 90 bpm. Does the patient have a suspected source of infection? Yes:. Risk Assessment: Do you want to hurt yourself or someone else? Patient reports no desire to harm self or others. Onset of symptoms was May 2020. 09:13 Acuity: ADOLFO 3 aa5 09:13 Method Of Arrival: Ambulatory aa5 Historical: - Allergies: 09:23 PENICILLINS; aa5 09:23 Pyridium; aa5 - Home Meds: 09:23 Paxil 40 mg Oral tab 1 tab once daily [Active]; Paxil 10 mg Oral tab 1 tab once daily aa5 [Active]; - PMHx: 09:23 Depression; aa5 - PSHx: 09:23 Hysterectomy; Cholecystectomy; Appendectomy; L ankle; aa5 - Immunization history:: Adult Immunizations unknown. - Social history:: Smoking status: Patient denies any tobacco usage or history of. Screenin:47 Abuse screen: Denies threats or abuse. Nutritional screening: No deficits noted. jd3 Tuberculosis screening: No symptoms or risk factors identified. Fall Risk Ambulatory Aid- None/Bed Rest/Nurse Assist (0 pts). Gait- Normal/Bed Rest/Wheelchair (0 pts) Mental Status- Oriented to own ability (0 pts). Total Muir Fall Scale indicates No Risk (0-24 pts). Assessment: 09:35 General: Appears in no apparent distress. uncomfortable, Behavior is calm, cooperative, jd3 appropriate for age. Pain: Complains of pain in abdomen Quality of pain is described as crampy, sharp. Neuro: Level of Consciousness is awake, alert, obeys commands, Oriented to person, place, time, situation. Cardiovascular: Denies chest pain, Capillary refill < 3 seconds Patient's skin is warm and dry. Respiratory: Airway is patent Respiratory effort is even, unlabored, Respiratory pattern is regular, symmetrical, Denies cough, shortness of breath. GI: Abdomen is round non-distended, Abd is soft X 4 quads Abdomen is tender to palpation in right upper quadrant and left upper quadrant Reports nausea, vomiting. : No signs and/or symptoms were reported regarding the genitourinary system. EENT: No signs and/or symptoms were reported regarding the EENT system. Derm: Skin is intact, Skin is dry, Skin is normal, Skin temperature is warm. Musculoskeletal: Circulation, motion, and sensation intact. Range of motion: intact in all extremities. 10:45 Reassessment: Patient appears in no apparent distress at this time. No changes from jl7 previously documented assessment. Patient and/or family updated on plan of care and expected duration. Pain level reassessed. Patient is alert, oriented x 3, equal unlabored respirations, skin warm/dry/pink. 11:30 Reassessment: Patient appears in no apparent distress at this time. No changes from jl7 previously documented assessment. Patient and/or family updated on plan of care and expected duration. Pain level reassessed. Patient is alert, oriented x 3, equal unlabored respirations, skin warm/dry/pink. Vital Signs: 09:13 BP 131 / 84; Pulse 112; Resp 20 S; Temp 98.5(O); Pulse Ox 100% on R/A; Weight 74.84 kg aa5 (R); Height 5 ft. 5 in. (165.10 cm) (R); Pain 3/10; 10:43 BP 102 / 58; Pulse 99; Resp 19; Pulse Ox 96% ; jl7 11:30 BP 105 / 60; Pulse 95; Resp 15; Pulse Ox 98% ; jl7 09:13 Body Mass Index 27.46 (74.84 kg, 165.10 cm) aa5 ED Course: 09:13 Patient arrived in ED. as 09:13 Arm band placed on Patient placed in an exam room, on a stretcher. aa5 09:14 Karla Avilez FNP-C is [facility]. kb 09:14 Favian Coppola MD is Attending Physician. kb 09:18 Jake Miller, RN is Primary Nurse. jd3 09:22 Triage completed. aa5 09:46 Inserted saline lock: 20 gauge in left antecubital area, using aseptic technique. Blood jd3 collected. 09:47 Patient has correct armband on for positive identification. Bed in low position. Call jd3 light in reach. Side rails up X2. Pulse ox on. NIBP on. 11:08 CT Abd/Pelvis - IV Contrast Only In Process Unspecified. EDMS 12:11 No provider procedures requiring assistance completed. IV discontinued, intact, jl7 bleeding controlled, No redness/swelling at site. Pressure dressing applied. Administered Medications: 09:45 Drug: NS 0.9% 1000 ml Route: IV; Rate: 1000 ml; Site: left antecubital; jd3 11:00 Follow up: Response: No adverse reaction; IV Status: Completed infusion; IV Intake: jl7 1000ml 09:45 Drug: Zofran (Ondansetron) 4 mg Route: IVP; Site: left antecubital; jd3 10:30 Follow up: Response: No adverse reaction; Nausea is decreased jl7 09:45 Drug: TORadol (ketorolac) 30 mg Route: IVP; Site: left antecubital; jd3 10:30 Follow up: Response: No adverse reaction; Pain is decreased jl7 Intake: 11:00 IV: 1000ml; Total: 1000ml. jl7 Outcome: 11:35 Discharge ordered by MD. kb 12:11 Discharged to home ambulatory. jl7 12:11 Condition: stable 12:11 Discharge instructions given to patient, Instructed on discharge instructions, follow up and referral plans. medication usage, Demonstrated understanding of instructions, follow-up care, medications, Prescriptions given X 2. 12:12 Patient left the ED. jl7 Signatures: Dispatcher [employer] [facility] Karla Avilez FNP-C FNP-Noemí Burroughs Audri RN RN aa5 Toni Traylor RN RN jl7 Jake Miller, BARBARA RN jd3 Corrections: (The following items were deleted from the chart) 10:45 10:43 BP 105 / 47; Pulse 106bpm; Resp 19bpm; Pulse Ox 93%; jl7 jl7
[2020-06-13 12:17] VITALS: TEMP 98.5
[2020-06-13 12:20] VITALS: BP 105/60; O2SAT 98
== END 2020-06-13 12:12 | disposition home or self-care (01) ==
LOC: ER 09:12
DX: K52.9 Noninfective gastroenteritis and colitis, unspecified (principal); F32.9 Major depressive disorder, single episode, unspecified; Z88.0 Allergy status to penicillin; Z88.8 Allergy status to other drugs, medicaments and biological substances
CPT/HCPCS: 85025; 80048; 36415; 80076; 83690; 74177; Q9967; J7030; J2405; 96361; 96374; 96375; 99284

== ENCOUNTER 2023-09-05 16:13 | Observation (INO) | payer OTHER, SELFPAY ==
--- NOTE | 2023-09-05 17:03 | RAD REPORT ---
EXAM DESCRIPTION: RAD - Chest Single View - 09/05/2023 4:57 pm CLINICAL HISTORY: CHEST PAIN COMPARISON: Chest Single View dated 01/05/2020 FINDINGS: Lines: None. Lungs: No evidence of edema or pneumonia. Pleural: No significant pleural effusions or pneumothorax. Cardiac: The heart size is within normal limits. Mediastinum: Within normal limits. Bones: No acute fractures. Other: None IMPRESSION: No acute cardiopulmonary disease.
[2023-09-05] MEDS ORDERED: ASPIRIN 81 MG CHEWABLE TABLET ONE (17:09)
[2023-09-05] MEDS ORDERED: NA CHLORIDE 0.9% 1,000 ML ONE (17:10)
[2023-09-05 17:36] LABS: ALT/SGPT 24 U/L (13-56); AST/SGOT 16 U/L (15-37); Albumin 3.8 g/dL (3.4-5.0); Albumin/Globulin Ratio 1.1 (1.1-1.8); Alkaline Phosphatase 79 U/L (45-117); Anion Gap 8.6 mEq/L (5.0-15.0); BUN Blood Urea Nitrogen 12 mg/dL (7-18); Bicarbonate 26 mEq/L (21-32); Bilirubin Total 0.4 mg/dL (0.2-1.0); Globulin 3.5 g/dL (2.3-3.5); Glomerular Filtration Rate 81 ml/min (=/>90); Glucose Level 108 mg/dL (74-106); Magnesium 2.1 mg/dL (1.6-2.4); NT PRO-BNP 20 pg/mL (<125); Potassium 3.6 mEq/L (3.5-5.1); Protein, Total 7.3 g/dL (6.4-8.2); Sodium Level 133 mEq/L (136-145); Troponin High Sensitivity 14.3 pg/mL (<58.9)
[2023-09-05 17:44] LABS: Absolute Eosinophils 0.1 K/uL (0-0.5); Absolute Monocytes 0.7 K/uL (0.1-1.3); Absolute Neutrophil 4.9 K/uL (1.8-8.0); Basophils % 0.4 % (0-1.3); Eosinophils % 1.7 % (0-4.4); Hemoglobin 13.7 g/dL (12.0-15.0); Lymphocytes % 25.3 % (15.3-44.8); MCH 31.6 pg (27.0-35.0); MCHC 34.3 g/dL (32.0-36.0); MCV 92.1 fL (80-100); MPV 7.5 fL (7.6-11.3); Monocytes % 9.4 % (3.3-12.3); Neutrophils % 63.2 % (41.7-73.7); Nucleated Red Blood Cells % 0.1 % (0-0); PT Prothrombin Time 13.4 SECONDS (9.4-12.5); Platelets 279 thou/uL (152-406); Protime INR 1.23; RBC Red Blood Cell Count 4.35 M/uL (3.86-4.86); Red Cell Distribution Width 13.6 % (12.1-15.2)
[2023-09-05 17:47] LABS: Bilirubin Direct < 0.2 mg/dL (0-0.2); Bilirubin Indirect, Calculated 0.2 mg/dL (0.2-0.8)
[2023-09-05] MEDS ORDERED: FENTANYL CITR 100 MCG/2 ML ONE (18:11)
[2023-09-05] MEDS ORDERED: ONDANSETRON 4 MG/2 ML VIAL ONE (18:11)
[2023-09-05] MEDS ORDERED: LIDOCAINE VISCOUS 2% 10ML ORAL SOLN ONE (18:11)
[2023-09-05] MEDS ORDERED: MAGNES/ALUMIN/SIMET 30ML UCUP ONE (18:11)
[2023-09-05] MEDS ORDERED: PANTOPRAZOLE 40 MG INJ ONE (18:11)
--- NOTE | 2023-09-05 18:16 | ER ---
Nurse's Notes [facility] Name: Monalisa Moore Age: 63 yrs Sex: Female : 1960 Arrival Date: 09/05/2023 Time: 16:13 Bed 8 Private MD: Diagnosis: Chest pain, unspecified;Epigastric abdominal tenderness Presentation: 09/04 16:37 Chief complaint: Patient states: Pt c/o upper abdominal pain that radiates across under tl4 breasts that started suddenly at approx 1500 while laying in bed. Pt states pain feels like contractions, it comes and goes. Pt also c/o diarrhea. Pt states pain feels like gall stones but has a history of gall bladder removal. Coronavirus screen: At this time, the client does not indicate any symptoms associated with coronavirus-19. Ebola Screen: No symptoms or risks identified at this time. Initial Sepsis Screen: Does the patient meet any 2 criteria? No. Patient's initial sepsis screen is negative. Does the patient have a suspected source of infection? No. Patient's initial sepsis screen is negative. Risk Assessment: Do you want to hurt yourself or someone else? Patient reports no desire to harm self or others. Onset of symptoms was September 05, 2023 at 15:00. 16:37 Method Of Arrival: EMS: [facility] tl4 16:37 Acuity: ADOLFO 3 tl4 16:41 Care prior to arrival: 107/40, 75, 98%RA. tl4 Triage Assessment: 16:44 General: Appears uncomfortable, Behavior is calm, cooperative. Pain: Complains of pain tl4 in abdomen. EENT: No signs and/or symptoms were reported regarding the EENT system. Neuro: Level of Consciousness is awake, alert, obeys commands, Oriented to person, place, time, situation, Moves all extremities. Full function Gait is steady. Neuro: Reports. Cardiovascular: Capillary refill < 3 seconds Patient's skin is warm and dry. Cardiovascular: Reports lightheadedness. Respiratory: Airway is patent Respiratory effort is even, unlabored, Respiratory pattern is regular, symmetrical. GI: Reports upper abdominal pain. : No signs and/or symptoms were reported regarding the genitourinary system. Derm: No signs and/or symptoms reported regarding the dermatologic system. Musculoskeletal: No signs and/or symptoms reported regarding the musculoskeletal system. Historical: - Allergies: 16:41 PENICILLINS; tl4 16:41 Pyridium; tl4 - Home Meds: 16:41 Paxil 40 mg Oral tab 1 tab once daily [Active]; aspirin 81 mg oral tablet, delayed tl4 release (enteric coated) 1 tab every other day [Active]; Magnesium Oxide Oral [Active]; - PMHx: 16:41 Depression; tl4 - PSHx: 16:41 Cholecystectomy; Partial abdominal hysterectomy; Tonsillectomy; Ankle surgery; tl4 - Immunization history:: Adult Immunizations unknown. - Infectious Disease History:: Denies. - Social history:: Smoking status: Patient denies any tobacco usage or history of. Screenin:07 [facility] ED Fall Risk Assessment (Adult) History of falling in the last 3 months, ld1 including since admission No falls in past 3 months (0 pts) Confusion or Disorientation No (0 pts) Intoxicated or Sedated No (0 pts) Impaired Gait No (0 pts) Mobility Assist Device Used No (0 pt) Altered Elimination No (0 pt) Score/Fall Risk Level 0 - 2 = Low Risk Oriented to surroundings, Maintained a safe environment, Educated pt \T\ family on fall prevention, incl call for assistance when getting out of bed, Assessed \T\ reinforced patient's understanding of fall precautions, Provided non-skid footwear, Hourly rounding (assess needs \T\ fall precautionary measures) done, Used ambulatory aids as needed (educated on \T\ assisted with), Used gait belt as appropriate. Abuse screen: Denies threats or abuse. Denies injuries from another. Nutritional screening: No deficits noted. Tuberculosis screening: No symptoms or risk factors identified. Assessment: 18:07 General: Appears in no apparent distress. comfortable, Behavior is calm, cooperative, ld1 appropriate for age. Pain: Complains of pain in left upper quadrant and right upper quadrant and epigastric area and chest Pain does not radiate. Pain currently is 8 out of 10 on a pain scale. Quality of pain is described as throbbing, Pain began suddenly. Neuro: Level of Consciousness is awake, alert, obeys commands, Oriented to person, place, time, situation. Cardiovascular: Capillary refill < 3 seconds Patient's skin is warm and dry. Rhythm is sinus rhythm. Respiratory: Airway is patent Respiratory effort is even, unlabored. GI: Abdomen is round non-distended. : No signs and/or symptoms were reported regarding the genitourinary system. EENT: No signs and/or symptoms were reported regarding the EENT system. Derm: No signs and/or symptoms reported regarding the dermatologic system. Musculoskeletal: No signs and/or symptoms reported regarding the musculoskeletal system. 18:50 Reassessment: Patient appears in no apparent distress at this time. No changes from ld1 previously documented assessment. Patient and/or family updated on plan of care and expected duration. Pain level reassessed. C/O pain to upper abdomen. Notified ERP. See MAR for orders. 21:14 General: Appears in no apparent distress. Behavior is calm, cooperative. Neuro: Level kd3 of Consciousness is awake, alert, obeys commands, Oriented to person, place, time, situation. Cardiovascular: Patient's skin is warm and dry. Respiratory: Airway is patent Trachea midline Respiratory effort is even, unlabored. Vital Signs: 16:37 BP 119 / 78; Pulse 78; Resp 16; Temp 97.4(TE); Pulse Ox 98% on R/A; Weight 76.7 kg; tl4 Height 5 ft. 5 in. ; Pain 7/10; 18:07 BP 101 / 67; Pulse 82; Resp 18; Pulse Ox 97% on R/A; Pain 8/10; ld1 18:50 BP 130 / 80; Pulse 76; Resp 18; Pulse Ox 100% on R/A; Pain 8/10; ld1 20:04 BP 112 / 64; Pulse 62; Resp 19; Pulse Ox 95% on R/A; kd3 21:16 BP 98 / 58; Pulse 63; Resp 17; Pulse Ox 95% on R/A; kd3 16:37 Body Mass Index 28.14 (76.70 kg, 165.1 cm) tl4 16:37 Pain Scale: Adult tl4 18:07 Pain Scale: Adult ld1 18:50 Pain Scale: Adult ld1 ED Course: 16:21 Patient arrived in ED. im 16:31 Favian Coppola MD is Attending Physician. kathie 16:41 Triage completed. tl4 16:45 Arm band placed on right wrist. tl4 16:59 XRAY Chest (1 view) In Process Unspecified. EDMS 17:03 Basic Metabolic Panel Sent. bc6 17:03 CBC with Diff Sent. bc6 17:03 LFT's Sent. 6 17:03 Magnesium Sent. 6 17:03 NT PRO-BNP Sent. 6 17:03 PT-INR Sent. 6 17:03 Troponin HS Sent. 6 17:03 Initial lab(s) drawn, by me, sent to lab. Inserted saline lock: 20 gauge in left [facility] antecubital area, using aseptic technique. Blood collected. 17:13 EKG done, by ED staff, reviewed by Favian Coppola MD. 6 18:07 Patient has correct armband on for positive identification. Placed in gown. Bed in low ld1 position. Call light in reach. Side rails up X2. shoer on. Pulse ox on. NIBP on. Door closed. Noise minimized. Warm blanket given. 18:07 No provider procedures requiring assistance completed. ld1 18:14 Jin Corcoran MD is Hospitalizing Provider. kathie 18:30 US Extremity Venous W Compression Vipul In Process Unspecified. EDMS 18:36 CT Chest For PE Angio In Process Unspecified. EDMS 18:37 CT Abd/Pelvis - IV Contrast Only In Process Unspecified. EDMS 18:49 Brooklynn Parekh, RN is Primary Nurse. ld1 21:15 Provided Education on: code status . kd3 21:15 Patient admitted, IV remains in place. kd3 Administered Medications: 17:13 Drug: Aspirin PO Chewable Tablet 81 mg PO once Route: PO; ld1 17:13 Drug: NS 0.9% IV 1000 ml IV at 125 ml/hr continuous Route: IV; Rate: 125 ml/hr; Site: ld1 left antecubital; 18:49 Drug: Ondansetron IVP 4 mg IVP once; over 2 minutes Route: IVP; Site: left antecubital; ld1 18:50 Drug: Pantoprazole IVP 40 mg IVP once Route: IVP; Site: left antecubital; ld1 18:50 Drug: GI Cocktail without - (Maalox PO 30 ml, Lidocaine Mucous Membrane 2 % 15 ld1 ml) PO once Route: PO; 18:50 Drug: fentaNYL (PF) IVP 50 mcg IVP once Route: IVP; Site: left antecubital; ld1 Medication: 18:07 VIS not applicable for this client. ld1 Outcome: 18:15 Decision to Hospitalize by Provider. kathie 21:15 Admitted to kd3 21:15 Admitted to Med/surg accompanied by nurse, room 405, 21:15 Condition: stable 21:15 Discharge instructions given to patient, Instructed on the need for admit, 22:03 Patient left the ED. kd3 Signatures: Dispatcher [employer] EDMS Favian Coppola MD MD cha Sims, Lauren, RN RN ld1 Meli Escobar, RN RN kd3 Lila Callaway [facility] Greta Quinones Toni, RN RN tl4 Corrections: (The following items were deleted from the chart) 17:12 17:03 D-DIMER+COAG.LAB.BRZ drawn and sent. [address]
--- NOTE | 2023-09-05 18:16 | EDPHYS ---
Physician Documentation [facility] Name: Monalisa Moore Age: 63 yrs Sex: Female : 1960 Arrival Date: 09/05/2023 Time: 16:13 Bed 8 Private MD: JOELLE Physician Favian Coppola HPI: 09/04 18:01 This 63 yrs old Female presents to ER via EMS with complaints of under breast kathie pain. 18:01 The patient or guardian reports chest pain that is located primarily in the substernal ktahie area, anterior chest wall, diaphragm, xiphoid area and mid-sternal area. Onset: today. The patient presents with abdominal pain in the epigastric area. Onset: The symptoms/episode began/occurred today. The pain radiates to chest. The symptoms do not radiate. Associated signs and symptoms: Pertinent positives: chest pain, shortness of breath. The symptoms are described as sharp. Modifying factors: The symptoms are alleviated by nothing, the symptoms are aggravated by nothing. The chest pain is described as squeezing. Historical: - Allergies: 16:41 PENICILLINS; tl4 16:41 Pyridium; tl4 - Home Meds: 16:41 Paxil 40 mg Oral tab 1 tab once daily [Active]; aspirin 81 mg oral tablet, delayed tl4 release (enteric coated) 1 tab every other day [Active]; Magnesium Oxide Oral [Active]; - PMHx: 16:41 Depression; tl4 - PSHx: 16:41 Cholecystectomy; Partial abdominal hysterectomy; Tonsillectomy; Ankle surgery; tl4 - Immunization history:: Adult Immunizations unknown. - Infectious Disease History:: Denies. - Social history:: Smoking status: Patient denies any tobacco usage or history of. ROS: 18:03 Constitutional: Negative for fever, chills, and weight loss, Eyes: Negative for injury, kathie pain, redness, and discharge, ENT: Negative for injury, pain, and discharge, Neck: Negative for injury, pain, and swelling, Respiratory: Negative for shortness of breath, cough, wheezing, and pleuritic chest pain, Back: Negative for injury and pain, : Negative for injury, bleeding, discharge, and swelling, MS/Extremity: Negative for injury and deformity, Skin: Negative for injury, rash, and discoloration, Neuro: Negative for headache, weakness, numbness, tingling, and seizure, Psych: Negative for depression, anxiety, suicide ideation, homicidal ideation, and hallucinations, Allergy/Immunology: Negative for hives, rash, and allergies, Endocrine: Negative for neck swelling, polydipsia, polyuria, polyphagia, and marked weight changes, Hematologic/Lymphatic: Negative for swollen nodes, abnormal bleeding, and unusual bruising, 18:03 Cardiovascular: Positive for chest pain, of the epigastric area, right upper quadrant and left upper quadrant, Exam: 18:03 Constitutional: This is a well developed, well nourished patient who is awake, alert, kathie and in no acute distress. Head/Face: Normocephalic, atraumatic. Eyes: Pupils equal round and reactive to light, extra-ocular motions intact. Lids and lashes normal. Conjunctiva and sclera are non-icteric and not injected. Cornea within normal limits. Periorbital areas with no swelling, redness, or edema. ENT: Nares patent. No nasal discharge, no septal abnormalities noted. Tympanic membranes are normal and external auditory canals are clear. Oropharynx with no redness, swelling, or masses, exudates, or evidence of obstruction, uvula midline. Mucous membranes moist. Neck: Trachea midline, no thyromegaly or masses palpated, and no cervical lymphadenopathy. Supple, full range of motion without nuchal rigidity, or vertebral point tenderness. No Meningismus. Chest/axilla: Normal chest wall appearance and motion. Nontender with no deformity. No lesions are appreciated. Respiratory: Lungs have equal breath sounds bilaterally, clear to auscultation and percussion. No rales, rhonchi or wheezes noted. No increased work of breathing, no retractions or nasal flaring. Abdomen/GI: Soft, non-tender, with normal bowel sounds. No distension or tympany. No guarding or rebound. No evidence of tenderness throughout. Back: No spinal tenderness. No costovertebral tenderness. Full range of motion. Skin: Warm, dry with normal turgor. Normal color with no rashes, no lesions, and no evidence of cellulitis. MS/ Extremity: Pulses equal, no cyanosis. Neurovascular intact. Full, normal range of motion. Neuro: Awake and alert, GCS 15, oriented to person, place, time, and situation. Cranial nerves II-XII grossly intact. Motor strength 5/5 in all extremities. Sensory grossly intact. Cerebellar exam normal. Normal gait. Psych: Awake, alert, with orientation to person, place and time. Behavior, mood, and affect are within normal limits. 18:03 Cardiovascular: Rate: normal, Rhythm: regular, Pulses: no pulse deficits are appreciated, Heart sounds: normal, Edema: is not appreciated, JVD: is not appreciated, 18:03 ECG was reviewed by the Attending Physician. Vital Signs: 16:37 BP 119 / 78; Pulse 78; Resp 16; Temp 97.4(TE); Pulse Ox 98% on R/A; Weight 76.7 kg; tl4 Height 5 ft. 5 in. ; Pain 7/10; 18:07 BP 101 / 67; Pulse 82; Resp 18; Pulse Ox 97% on R/A; Pain 8/10; ld1 18:50 BP 130 / 80; Pulse 76; Resp 18; Pulse Ox 100% on R/A; Pain 8/10; ld1 20:04 BP 112 / 64; Pulse 62; Resp 19; Pulse Ox 95% on R/A; kd3 21:16 BP 98 / 58; Pulse 63; Resp 17; Pulse Ox 95% on R/A; kd3 16:37 Body Mass Index 28.14 (76.70 kg, 165.1 cm) tl4 16:37 Pain Scale: Adult tl4 18:07 Pain Scale: Adult ld1 18:50 Pain Scale: Adult ld1 MDM: 16:32 Patient medically screened. kathie 18:07 Differential diagnosis: abnormal EKG, acute myocardial infarction, acute pericarditis, kathie anxiety, coronary artery disease costochondritis, esophagitis, gastritis, hiatal hernia, pancreatitis, peptic ulcer disease, pericarditis, pneumonia, pneumothorax, pulmonary embolus, stable angina, unstable angina, bowel obstruction, GI Bleed, non-specific abd pain, pancreatitis, Peptic Ulcer Disease, Pyelonephritis, urinary tract infection. HEART Score: History: Slightly Suspicious (0), ECG: Non specific repolarization disturbance / LBTB / PM (1), Age: > 45 and < 65 years (1), Risk Factors: 1 or 2 risk factors (1), [+ Family HX] [Obesity] Troponin: < or = 1 x Normal Limit (0), Total Score = 3. The patient was given aspirin in the Emergency Department. NIDIA Risk Score: TOTAL SCORE = 0. Data reviewed: vital signs, nurses notes, lab test result(s), EKG, radiologic studies, CT scan, plain films. Consideration of Admission/Observation Escalation of care including admission/observation considered. I considered the following discharge prescriptions or medication management in the emergency department Medications were administered in the Emergency Department. See MAR. Independent interpretation of the following test(s) in the Emergency Department EKG: See my EKG interpretation above. Test considered but Not performed: Ultrasound no 2 d echo. Historians other than the Patient: pt well informed. Care significantly affected by the following chronic conditions: Obesity, depressoion. Counseling: I had a detailed discussion with the patient and/or guardian regarding the historical points, exam findings, and any diagnostic results supporting the discharge/admit diagnosis, lab results, radiology results, the need for further work-up and treatment in the hospital. 09/04 16:33 Order name: Basic Metabolic Panel; Complete Time: 17:58 [facility] 09/04 16:33 Order name: CBC with Diff; Complete Time: 17:58 [facility] 09/04 16:33 Order name: LFT's; Complete Time: 17:58 [facility] 09/04 16:33 Order name: Magnesium; Complete Time: 17:58 [facility] 09/04 16:33 Order name: NT PRO-BNP; Complete Time: 17:58 [facility] 09/04 16:33 Order name: PT-INR; Complete Time: 17:58 [facility] 09/04 16:33 Order name: Troponin HS; Complete Time: 17:58 [facility] 09/04 17:13 Order name: D-Dimer; Complete Time: 17:58 [facility] 09/04 18:36 Order name: Urinalysis w/ reflexes [facility] 09/04 18:36 Order name: CBC with Automated Diff [facility] 09/04 18:36 Order name: CBC with Automated Diff [facility] 09/04 18:36 Order name: Comprehensive Metabolic Panel [facility] 09/04 18:36 Order name: Comprehensive Metabolic Panel [facility] 09/04 18:36 Order name: Troponin High Sensitivity [facility] 09/04 18:36 Order name: Troponin High Sensitivity [facility] 09/04 18:36 Order name: Troponin High Sensitivity [facility] 09/04 18:36 Order name: Troponin High Sensitivity [facility] 09/04 16:33 Order name: XRAY Chest (1 view); Complete Time: 17:58 [facility] 09/04 17:58 Order name: CT Chest For PE Angio; Complete Time: 18:45 [facility] 09/04 17:58 Order name: CT Abd/Pelvis - IV Contrast Only; Complete Time: 19:42 [facility] 09/04 18:00 Order name: US Extremity Venous W Compression Vipul; Complete Time: 18:45 [facility] 09/04 16:33 Order name: Cardiac monitoring; Complete Time: 17:13 [facility] 09/04 16:33 Order name: EKG - Nurse/Tech; Complete Time: 17:13 [facility] 09/04 16:33 Order name: IV Saline Lock; Complete Time: 17:03 [facility] 09/04 16:33 Order name: Labs collected and sent; Complete Time: 17:03 [facility] 09/04 16:33 Order name: O2 Per Protocol; Complete Time: 17:07 [facility] 09/04 16:33 Order name: O2 Sat Monitoring; Complete Time: 17:07 [facility] EC:03 Rate is 65 beats/min. Rhythm is regular. QRS [place] is Normal. GA interval is normal. QT kathie interval is normal. No Q waves. T waves are Normal. No ST changes noted. Clinical impression: NSR w/ Non-specific ST/T Changes and No evidence of ischemia. Interpreted by me. Reviewed by me. Administered Medications: 17:13 Drug: Aspirin PO Chewable Tablet 81 mg PO once Route: PO; ld1 17:13 Drug: NS 0.9% IV 1000 ml IV at 125 ml/hr continuous Route: IV; Rate: 125 ml/hr; Site: ld1 left antecubital; 18:49 Drug: Ondansetron IVP 4 mg IVP once; over 2 minutes Route: IVP; Site: left antecubital; ld1 18:50 Drug: Pantoprazole IVP 40 mg IVP once Route: IVP; Site: left antecubital; ld1 18:50 Drug: GI Cocktail without - (Maalox PO 30 ml, Lidocaine Mucous Membrane 2 % 15 ld1 ml) PO once Route: PO; 18:50 Drug: fentaNYL (PF) IVP 50 mcg IVP once Route: IVP; Site: left antecubital; ld1 Disposition Summary: 09/05/23 18:15 Hospitalization Ordered Notes: Hospitalization Status: Observation [facility] Provider: Jin Corcoran cha Location: Telemetry/MedSurg (observation) kathie Condition: Stable kathie Problem: new kathie Symptoms: have improved kathie Bed/Room Type: Standard [facility] Room Assignment: 405(09/05/23 20:55) Diagnosis - Chest pain, unspecified kathie - Epigastric abdominal tenderness kathie Forms: - Medication Reconciliation Form kathie - SBAR form kathie - Leadership Thank You Letter kathie Signatures: Dispatcher [employer] EDViki Burger RN RN kl Anderson, Corey, MD MD cha Marinas, Patrick, SUPERVISOR ADVICE SUPERVISOR ADVICE pm1 Brooklynn Parekh RN RN ld1 Jasiel Starkey RN RN tl4 Corrections: (The following items were deleted from the chart) 17:12 16:33 D-DIMER+COAG.LAB.BRZ ordered. EDGA EDMS 20:55 18:15 kathie tobar
[2023-09-05] MEDS ORDERED: ACETAMINOPHEN 325 MG TABLET PO PRN (18:32)
[2023-09-05] MEDS ORDERED: ONDANSETRON 4 MG/2 ML VIAL IV PRN (18:32)
--- NOTE | 2023-09-05 18:35 | RAD REPORT ---
EXAM DESCRIPTION: US - Extrem Venous W Compress Vipul - 09/05/2023 6:28 pm CLINICAL HISTORY: PAIN COMPARISON: No comparisons TECHNIQUE: Real-time sonographic evaluation of the lower extremity deep venous systems was performed using color Doppler, grayscale, and compression. FINDINGS: Bilateral lower extremities. Normal compressibility, flow augmentation, phasic flow and spontaneous flow is identified in both the left and right lower extremity deep venous systems. No intraluminal filling defects seen. IMPRESSION: No DVT in either lower extremity.
--- NOTE | 2023-09-05 18:36 | P.HP ---
Certification for Inpatient Patient admitted to: Observation With expected LOS: <2 Midnights Practitioner: I am a practitioner with admitting privileges, knowledge of patient current condition, hospital course, and medical plan of care. Services: Services provided to patient in accordance with Admission requirements found in Title 42 Section 412.3 of the Code of Federal Regulations Patient History Date of Service: 09/06/23 Reason for admission: Chest Pain History of Present Illness: 63 yrs old Female with past medical history of depression, and history of Cholecystectomy; Partial abdominal hysterectomy; Tonsillectomy; Ankle surgery presents to ER with chest pain. Substernal location radiating to the anterior chest wall started today. Also radiate to the epigastric region and to the left side of the breast. Denies any fever or chills. Not associate with any diaphoresis. No nausea vomiting or diarrhea. Associated with mild shortness of breath. No sick contacts. Patient was assessed in the ER and was admitted for further management of chest pain to rule out ACS Allergies Penicillins Adverse Reaction (Verified 09/05/23 22:35) Hives/Rash phenazopyridine [From Pyridium] Adverse Reaction (Verified 09/05/23 22:35) Hives/Rash Home medications list reviewed: Yes Home Medications: Aspirin 81 mg PO 09/05/23 Magnesium Oxide [Mag 0X Tab] 400 mg PO DAILY 09/05/23 PARoxetine HCL [Paxil] 40 mg PO 09/05/23 - Past Medical/Surgical History Past Medical History: Reviewed- Non-Contributory Past Surgical History: Reviewed- Non-Contributory -: Cholecystectomy; Partial abdominal hysterectomy; Tonsillectomy; Ankle surge - Family History Family History: Reviewed- Non-Contributory - Social History Smoking Status: Never smoker Review of Systems 10-point ROS is otherwise unremarkable Physical Examination - Vital Signs Temperature: 97.4 F Blood Pressure: 120/76 Pulse: 78 Respirations: 18 Pulse Ox (%): 94 - Physical Exam General: Alert, In no apparent distress, Oriented x3 HEENT: Atraumatic, Normocephalic Neck: Supple, 2+ carotid pulse no bruit Respiratory: Clear to auscultation bilaterally, Normal air movement Cardiovascular: No edema, Regular rate/rhythm, Normal S1 S2 Capillary refill: <2 Seconds Gastrointestinal: Soft and benign, W/out hepatosplenomegaly Musculoskeletal: No clubbing, No swelling Integumentary: No rashes, No breakdown Neurological: Normal speech, Normal strength at 5/5 x4 extr, Cranial nerves 3-12 intact, Normal reflexes 2+ Lymphatics: No axilla or inguinal lymphadenopathy - Studies Laboratory Data (last 24 hrs) 09/05/23 09/05/23 09/05/23 17:00 17:00 17:00 WBC 7.80 Hgb 13.7 Hct 40.0 Plt Count 279 PT 13.4 H INR 1.23 Sodium 133 L Potassium 3.6 BUN 12 Creatinine 0.82 Glucose 108 H Magnesium 2.1 Total Bilirubin 0.4 AST 16 ALT 24 Alkaline Phosphatase 79 Assessment and Plan - Problems (Diagnosis) (1) Chest pain Current Visit: Yes Status: Acute Plan: Chest pain to rule out ACS Will trend cardiac enzymes Will monitor telemetry Started on aspirin and statin EKG did not show any acute changes suggestive of ischemia Will get an echocardiogram Cardiology consult CT chest negative for PE Mild hyponatremia Recheck electrolytes and replace accordingly Depression Continue home medications GI/DVT prophylaxis Advanced directive full code Discharge Plan: Home Plan to discharge in: 24 Hours - Advance Directives Does patient have a Living Will: No Does patient have a Durable POA for Healthcare: No - Code Status/Comfort Care Code Status: Full Code Time Spent Managing Pts Care (In Minutes): 48
--- NOTE | 2023-09-05 18:43 | RAD REPORT ---
EXAM DESCRIPTION: CT - Chest For Pe Angio - 09/05/2023 6:34 pm CLINICAL HISTORY: Abdominal distention;Chest pain COMPARISON: No comparisons TECHNIQUE: Dynamically enhanced axial 3 mm thick images of the chest were obtained during administra tion of <100> mL Isovue 370 IV contrast. Coronal and oblique reconstruction images were generated and reviewed. Exam utilizes a protocol for optimal evaluation of pulmonary arterial tree. Maximum intensity projections 3D imaging was utilized All CT scans are performed using dose optimization technique as appropriate and may include automated exposure control or mA/KV adjustment according to patient size. FINDINGS: Chest Wall: No suspicious thyroid nodules or pathologic lymphadenopathy. Lungs: No acute abnormality. Calcified left lower lobe nodule. Pleura: No significant effusions or pneumothorax. Mediastinum/diana: No pathologic lymphadenopathy. Small hiatal hernia. Pulmonary arteries/Aorta: No filling defect identified. No aortic aneurysm. Heart: No significant pericardial effusion. Normal heart size. Upper abdomen: No acute abnormality.Cholecystectomy Bones: No acute abnormality. Multilevel degenerative changes are present in the spine. IMPRESSION: Negative for pulmonary embolism. No acute findings in the chest.
--- NOTE | 2023-09-05 18:48 | RAD REPORT ---
EXAM DESCRIPTION: CTAbdomen Pelvis W Contrast - 09/05/2023 6:35 pm CLINICAL HISTORY: ABD PAIN COMPARISON: Abdomen Pelvis W Contrast dated 06/13/2020 TECHNIQUE: CT of the abdomen and pelvis was performed with IV contrast. All CT scans are performed using dose optimization technique as appropriate and may include automated exposure control or mA/KV adjustment according to patient size. FINDINGS: Lower chest: No acute abnormality. Small hiatal hernia. Liver: No acute abnormality or suspicious lesions. Biliary: Cholecystectomy Stomach: No significant focal abnormality. Duodenum: No significant focal abnormality. Pancreas: No significant abnormality. Spleen: No significant abnormality. Adrenal: No suspicious lesions. Kidney/ureter: Mild bilateral hydronephrosis. No renal calculi. Retroperitoneum: No retroperitoneal adenopathy. Vascular: No aneurysm. Bowel: No significant focal abnormality. Peritoneum: No ascites or free air. Small fat containing umbilical hernia . Bladder: Grossly unremarkable. Reproductive: Hysterectomy. Bones: No acute fracture. Other: n/a IMPRESSION: No definite acute intra-abdominal or pelvic finding. Mild bilateral hydroureteronephrosis. This may be secondary to bladder distention. Correlate for urin simran retention.
[2023-09-05 22:33] VITALS: BMI 28.1
[2023-09-05] MEDS: ENOXAPARIN 40 MG/0.4 ML SQ SCH (22:33)
[2023-09-05 23:14] LABS: Sqamous Epithelial <5 /HPF (None Seen); Urine Bacteria None Seen /HPF (<20); Urine Bilirubin NEGATIVE (Negative); Urine Blood Trace (Negative); Urine Clarity Clear (Clear); Urine Color Light-Yellow (Yellow); Urine Culture Reflex Order NOT NEEDED; Urine Glucose NEGATIVE (Negative); Urine Ketones TRACE (Negative); Urine Microscopic Reflex YN ORDER UMIC; Urine Nitrite NEGATIVE (Negative); Urine Protein TRACE (Negative); Urine RBC <5 /HPF (None Seen); Urine Urobilinogen Normal (Normal); Urine WBC <5 /HPF (<5); Urine pH 5.5 (5.0-7.0)
[2023-09-05 23:15] LABS: Specific Gravity > 1.030 (1.005-1.030)
[2023-09-06 07:12] LABS: Absolute Eosinophils 0.2 K/uL (0-0.5); Absolute Lymphocytes (CBC) 1.9 K/uL (0.7-4.9); Absolute Monocytes 0.7 K/uL (0.1-1.3); Absolute Neutrophil 2.5 K/uL (1.8-8.0); Basophils % 0.4 % (0-1.3); Eosinophils % 3.4 % (0-4.4); Hematocrit 39.1 % (36.0-45.0); Hemoglobin 13.2 g/dL (12.0-15.0); Lymphocytes % 36.2 % (15.3-44.8); MCH 31.4 pg (27.0-35.0); MCHC 33.7 g/dL (32.0-36.0); MCV 93.1 fL (80-100); MPV 7.8 fL (7.6-11.3); Monocytes % 12.7 % (3.3-12.3); Neutrophils % 47.3 % (41.7-73.7); Platelets 251 thou/uL (152-406); Red Cell Distribution Width 13.4 % (12.1-15.2)
[2023-09-06 07:25] LABS: Albumin 3.4 g/dL (3.4-5.0); Albumin/Globulin Ratio 1.1 (1.1-1.8); Anion Gap 4.3 mEq/L (5.0-15.0); Bilirubin Total 0.3 mg/dL (0.2-1.0); Globulin 3.1 g/dL (2.3-3.5); Potassium 4.3 mEq/L (3.5-5.1); Protein, Total 6.5 g/dL (6.4-8.2)
[2023-09-06] MEDS: ASPIRIN EC 81 MG TAB PO SCH (07:31)
[2023-09-06 09:01] VITALS: O2SAT 96
--- NOTE | 2023-09-06 10:33 | P.CNS ---
Date of Consult: 09/06/23 Chief Complaint: Chest Pain History of Present Illness: Patient with no significant PMH, presented with sudden onset upper abdominal pain, on bilateral epigastric area, felt like contractions, denies any other symptoms, report history of cholecystectomy, denies any chest pain, no SOB, no palpitations, no syncope, patient is very active and she moans that grass without any limitations. Allergies Penicillins Adverse Reaction (Verified 09/05/23 22:35) Hives/Rash phenazopyridine [From Pyridium] Adverse Reaction (Verified 09/05/23 22:35) Hives/Rash Home Medications: Aspirin 81 mg PO 09/05/23 Magnesium Oxide [Mag 0X Tab] 400 mg PO DAILY 09/05/23 PARoxetine HCL [Paxil] 40 mg PO 09/05/23 - Past Medical/Surgical History Diabetic: No -: Cholecystectomy; Partial abdominal hysterectomy; Tonsillectomy; Ankle surge -: PARTIAL HYSTERECTOMY -: CHOLECYSTECTOMY - Social History Alcohol use: No CD- Drugs: Yes Caffeine use: Yes Place of Residence: Home Review of Systems 10-point ROS is otherwise unremarkable Physical Examination Temp Pulse Resp BP Pulse Ox 97.8 F 60 16 107/60 96 09/06/23 07:41 09/06/23 07:41 09/06/23 07:41 09/06/23 07:41 09/06/23 07:41 General: Alert, In no apparent distress HEENT: Atraumatic, PERRLA, Mucous membr. moist/pink, EOMI, Sclerae nonicteric Neck: Supple, 2+ carotid pulse no bruit, No LAD, Without JVD or thyroid abnormality Respiratory: Clear to auscultation bilaterally, Normal air movement Cardiovascular: Regular rate/rhythm, Normal S1 S2 Gastrointestinal: Normal bowel sounds, No tenderness Musculoskeletal: No tenderness Integumentary: No rashes Neurological: Normal gait, Normal speech, Normal tone, Normal affect Lymphatics: No axilla or inguinal lymphadenopathy Laboratory Data (last 24 hrs) 09/05/23 09/05/23 09/05/23 17:00 17:00 17:00 WBC 7.80 Hgb 13.7 Hct 40.0 Plt Count 279 PT 13.4 H INR 1.23 Sodium 133 L Potassium 3.6 BUN 12 Creatinine 0.82 Glucose 108 H Magnesium 2.1 Total Bilirubin 0.4 AST 16 ALT 24 Alkaline Phosphatase 79 - Problems (1) Chest pain Current Visit: Yes Status: Acute Plan: non cardiac in origin, as it is atypical and no EKG changes and enzymes are negative, patient is very active at home and denies having any cardiac symptoms, agree with Echo outpatient cardiology follow up for possible stress test. No further cardiac work up needed. continue ASA 81 mg daily continue lipitor 40 mg daily (2) HLD (hyperlipidemia) Current Visit: Yes Status: Acute Plan: continue lipitor 40 mg daily lipid panel in 3 months (3) Abdominal pain Current Visit: Yes Status: Acute Plan: per primary team. pain is better today, consider outpatient GI follow up.
--- NOTE | 2023-09-06 10:55 | EKG ---
Test Date: 2023-09-05 Test Time: 17:08:35 Special Systems Technician: ROSELYN MEASUREMENT RESULTS: Intervals: Rate: 65 [place]: 146 QRSD: 84 QT: 416 QTc: 432 [place]: P: 44 [place]: 146 QRS: 0 T: 8 INTERPRETIVE STATEMENTS: Normal sinus rhythm with sinus arrhythmia Cannot rule out Anterior infarct, age undetermined Abnormal ECG Compared to ECG 01/05/2020 16:06:21 Myocardial infarct finding now present Electronically Signed On 09-06-23 10:54:01 CDT by Aníbal Almaguer
[2023-09-06 12:05] VITALS: BP 100/56; TEMP 97.7
--- NOTE | 2023-09-06 14:49 | ECHO ---
HEIGHT: 5 ft 5 in WEIGHT: 169 lb 0 oz DATE OF STUDY: 09/06/[address]: Bright Corcoran DO 2-DIMENSIONAL: YES M.MODE: YES DOPPLER: YES COLOR FLOW: YES TDS: PORTABLE: DEFINITY: BUBBLE STUDY: DIAGNOSIS: CHEST PAIN CARDIAC HISTORY: CATHERIZATION: NO SURGERY: NO PROSTHETIC VALVE: NO PACEMAKER: NO MEASUREMENTS (cm) DIASTOLIC (NORMALS) SYSTOLIC (NORMALS) IVSd 0.8 (0.6-1.2) LA Diam 3.3 (1.9-4.0) LVEF 60-65% LVIDd 4.4 (3.5-5.7) LVIDs 2.6 (2.0-3.5) %FS 42% LVPWd 0.9 (0.6-1.2) Ao Diam 2.6 (2.0-3.7) 2 DIMENSIONAL ASSESSMENT: RIGHT ATRIUM: NORMAL LEFT ATRIUM: NORMAL RIGHT VENTRICLE: NORMAL LEFT VENTRICLE: NORMAL TRICUSPID VALVE: TRACE TRICUSPID REGURGITATION MITRAL VALVE: NORMAL PULMONIC VALVE: NORMAL AORTIC VALVE: NORMAL PERICARDIAL EFFUSION: NONE AORTIC ROOT: NORMAL LEFT VENTRICULAR WALL MOTION: NORMAL DOPPLER/COLOR FLOW: NORMAL COMMENTS: 1. NORMAL LEFT VENTRICULAR SYSTOLIC FUNCTION, EJECTION FRACTION 60-65%, NORMAL WALL MOTION 2. NORMAL DIASTOLIC FUNCTION TECHNOLOGIST: TRIPP N[place]ON
--- NOTE | 2023-09-06 18:50 | P.DS ---
Admission Date: 09/05/23 Discharge Date: 09/06/23 Disposition: ROUTINE DISCHARGE Discharge Condition: GOOD Reason for Admission: Chest Pain Brief History of Present Illness: 63 yrs old Female with past medical history of depression, and history of Cholecystectomy; Partial abdominal hysterectomy; Tonsillectomy; Ankle surgery presents to ER with chest pain. Substernal location radiating to the anterior chest wall started today. Also radiate to the epigastric region and to the left side of the breast. Denies any fever or chills. Not associate with any diaphoresis. No nausea vomiting or diarrhea. Associated with mild shortness of breath. No sick contacts. Patient was assessed in the ER and was admitted for further management of chest pain to rule out ACS - Physical Exam General: Alert, In no apparent distress, Oriented x3 HEENT: Atraumatic, Normocephalic Neck: Supple, 2+ carotid pulse no bruit Respiratory: Clear to auscultation bilaterally, Normal air movement Cardiovascular: No edema, Regular rate/rhythm, Normal S1 S2 Capillary refill: <2 Seconds Gastrointestinal: Soft and benign, W/out hepatosplenomegaly Musculoskeletal: No clubbing, No swelling Integumentary: No rashes, No breakdown Neurological: Normal speech, Normal strength at 5/5 x4 extr, Cranial nerves 3-12 intact, Normal reflexes 2+ Lymphatics: No axilla or inguinal lymphadenopathy Hospital Course: 63 yrs old Female with past medical history of depression, and history of Cholecystectomy; Partial abdominal hysterectomy; Tonsillectomy; Ankle surgery presents to ER with chest pain. Substernal location radiating to the anterior chest wall pain, she was admitted for chest pain workup CT chest negative for PE, echocardiogram NORMAL LEFT VENTRICULAR SYSTOLIC FUNCTION, EJECTION FRACTION 60-65%, chest x-ray no acute findings, lipid panel, unremarkable, serial troponins negative, lower extremity venous Doppler, negative for DVT, Ms. todd was evaluated by cardiology, for epigastric pain. She can follow-up with outpatient for additional cardiac testing as needed per cardiology. Continue Lipitor 40 daily, aspirin 81 daily, patient is tolerating, stable to discharge home follow-up with PCP in 1 to 2 weeks, follow-up with cardiology after discharge Discharge medications Protonix 40 mg daily #30 Lipitor 40 mg at bedtime #30 Aspirin 81 mg Continue home medicines as previously prescribed GOAL: Clear understanding of disease process INSTRUCTIONS: Physician Discharge Instructions: Follow-up with cardiology after discharge -Follow-up with PCP in 1 to 2 weeks -Please call Dr. Vann at [phone] if any questions regarding hospital stay -Please call nursing station at [phone] if any nursing or medication questions -Return to the emergency room if symptoms worsen Diet: ADA, low sodium Activity: Fall precautions Vital Signs/Physical Exam: Temp Pulse Resp BP Pulse Ox 97.7 F 64 16 100/56 L 96 09/06/23 11:48 09/06/23 11:48 09/06/23 11:48 09/06/23 11:48 09/06/23 11:48 Laboratory Data at Discharge: WBC 5.30 thou/uL (4.3-10.9) 09/06/23 05:51 Hgb 13.2 g/dL (12.0-15.0) 09/06/23 05:51 Hct 39.1 % (36.0-45.0) 09/06/23 05:51 Plt Count 251 thou/uL (152-406) 09/06/23 05:51 PT 13.4 SECONDS (9.4-12.5) H 09/05/23 17:00 INR 1.23 09/05/23 17:00 Sodium 141 mEq/L (136-145) D 09/06/23 05:51 Potassium 4.3 mEq/L (3.5-5.1) D 09/06/23 05:51 BUN 8 mg/dL (7-18) 09/06/23 05:51 Creatinine 0.74 mg/dL (0.55-1.02) 09/06/23 05:51 Glucose 94 mg/dL (74-106) 09/06/23 05:51 Magnesium 2.1 mg/dL (1.6-2.4) 09/05/23 17:00 Total Bilirubin 0.3 mg/dL (0.2-1.0) 09/06/23 05:51 AST 12 U/L (15-37) L 09/06/23 05:51 ALT 23 U/L (13-56) 09/06/23 05:51 Alkaline Phosphatase 64 U/L (45-117) 09/06/23 05:51 Triglycerides 133 mg/dL (<150) 09/06/23 10:47 Cholesterol 171 mg/dL (<200) 09/06/23 10:47 HDL Cholesterol 65 mg/dL (40-60) H 09/06/23 10:47 Cholesterol/HDL Ratio 2.63 09/06/23 10:47 Home Medications: Aspirin 81 mg PO 09/05/23 Magnesium Oxide [Mag 0X*] 400 mg PO DAILY 09/05/23 PARoxetine HCL [Paxil] 40 mg PO 09/05/23 Atorvastatin Calcium [Lipitor] 40 mg PO BEDTIME #30 tab 09/06/23 Pantoprazole [Protonix Tab] 40 mg PO DAILY #30 tab 09/06/23 New Medications: Atorvastatin Calcium [Lipitor] 40 mg PO BEDTIME #30 tab Pantoprazole [Protonix Tab] 40 mg PO DAILY #30 tab Physician Discharge Instructions: -DC IV and DC home -Follow-up with PCP in 1 to 2 weeks -Follow-up with Cardiology in 1 to 2 weeks -Please call Dr. Vann at [phone] if any questions regarding hospital stay -Please call nursing station at [phone] if any nursing or medication quest ions -Return to the emergency room if symptoms worsen Diet: AHA Activity: Fall precautions Followup: NONE,NONE [Primary Care Provider] - Aníbal Almaguer MD [ACTIVE - CAN ADMIT] - Time spent managing pt's care (in minutes): 55
[2023-09-06] MEDS ORDERED: ATORVASTATIN 40 MG TAB PO SCH (21:00)
== END 2023-09-06 15:05 | disposition home or self-care (01) ==
LOC: ER 16:13 → ERHOLD 18:32 → 4TH 21:24
PROVIDERS: ADMIT Family Medicine; ATTEND Hospitalist
DX: R07.9 Chest pain, unspecified (principal); E87.1 Hypo-osmolality and hyponatremia; F32.A Depression, unspecified; Z90.49 Acquired absence of other specified parts of digestive tract; Z90.710 Acquired absence of both cervix and uterus; Z88.0 Allergy status to penicillin; Z88.8 Allergy status to other drugs, medicaments and biological substances; Z79.82 Long term (current) use of aspirin
CPT/HCPCS: 36415; 71045; 71275; 74177; 80048; 80053; 80061; 80076; 81001; 83735; 83880; 84484; 85025; 85379; 85610; 93005; 93306; 93970; 96374; 96375; 99285; C9113; G0378; J1650; J2405; J3010; J7030; Q9967